=== PATIENT | male | born 1945 | race Caucasian/White ===

== ENCOUNTER 2016-12-27 22:22 | Emergency (ER) | payer BC ==
[~2016-12-27] VITALS: Ht 177.8 cm; Wt 86.2 kg
[2016-12-27] MEDS ORDERED: NORCO 5-325 TA1 EACH ORAL (22:54)
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
[2016-12-27] MEDS ORDERED: Mylanta II UD 30ml ORAL ONE (23:00)
[2016-12-27 23:44] VITALS: BP 125/74
[2016-12-28 00:03] VITALS: BP 125/74
--- NOTE | 2016-12-28 10:46 | Diagnostic Imaging Report ---
Indication: Head trauma Technique: Contiguous 5 mm thick transaxial imaging of the head obtained in a Siemens Sensation [address] scanner. Soft tissue and bone windows generated. Total Dose length Product (DLP): [address] Dose Index Volume (CTDIvol): 70.38 mGy Comparison: none Findings: There is mild prominence of the ventricles, basal cisterns, and cerebral sulci consistent with atrophy. Mild, nonspecific, white matter hypoattenuation is noted throughout the brain consistent with chronic small vessel disease. There is no midline shift, edema, acute hemorrhage, mass effect, or abnormal extra-axial fluid collections. Bones and extra osseous soft tissues are unremarkable. Impression: No acute intracranial bleed, mass effect or edema. Mild atrophy of the brain. Nonspecific white matter hypoattenuation probably due to chronic small vessel disease. [facility] has communicated the preliminary results to the Emergency Department. Their findings are largely concordant with this report. The CT scanner at [facility] is accredited by the [employer] and the scans are performed using protocols designed to limit radiation exposure to as low as reasonably achievable to attain images of sufficient resolution adequate for diagnostic evaluation.
--- NOTE | 2016-12-28 11:09 | Diagnostic Imaging Report ---
Indication: Back pain Comparison: None Findings: 3 views of the lumbar spine were obtained. Multilevel narrowing of intervertebral disks and associated endplate and Facet osteophytes are present. No malalignment identified. No acute fracture definitely seen. Impression: Mild spondylosis. No acute injury appreciated.
--- NOTE | 2017-01-30 14:57 | Diagnostic Imaging Report ---
Indication: Back pain Findings: 2 views of the thoracic spine were obtained. No definite fracture is identified. There are endplate spurs noted throughout the thoracic spine. Mild generalized osteopenia is present. There is no malalignment. Impression: Moderate spondylosis. No definite fracture identified
== END 2016-12-28 00:04 | disposition home or self-care (01) ==
LOC: EDBD 22:22 → EMR 23:05
DX: S80.212A Abrasion, left knee, initial encounter (principal); V09.9XXA Pedestrian injured in unspecified transport accident, initial encounter; Y93.01 Activity, walking, marching and hiking; Y92.410 Unspecified street and highway as the place of occurrence of the external cause; S09.90XA Unspecified injury of head, initial encounter; M54.6 Pain in thoracic spine; T14.8 Other injury of unspecified body region; I10 Essential (primary) hypertension
CPT/HCPCS: 70450; 72020; 72070; 99284